=== PATIENT | male | born 2000 | race Caucasian/White ===

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

== ENCOUNTER 2021-04-12 08:24 | Emergency (ER) | payer OTHER ==
[~2021-04-12] VITALS: Ht 180.3 cm; Wt 86.2 kg
[~2021-04-12 08:24] MED LIST changes: +ACETAMINOPHEN-1 EAC1 PO; +ZYRTEC10 M5 PO
[2021-04-12 09:17] LABS: ABSOLUTE EOSINOPHILS 0.3 thou/uL (0.0-0.7); ABSOLUTE NEUTROPHILS 5.7 thou/uL (1.6-8.1); BASOPHILS 0.5 %; EOSINOPHILS 2.9 %; HEMATOCRIT 43.9 % (42.0-52.0); LYMPHOCYTES 29.6 %; MCH 31.4 pg (26.0-34.0); MCHC 34.1 g/dL (28.0-37.0); MCV 91.9 fL (80.0-100.0); MPV 7.6 fl. (7.2-11.1); NUCLEATED RBCS 0 /100WBC; PLATELET COUNT* 278 thou/uL (150-400); RBC 4.78 mil/uL (4.50-6.00); RDW-CV 12.5 % (10.5-14.5)
[2021-04-12 09:36] LABS: CALCIUM 9.2 mg/dL (8.5-10.1); CREATININE 1.1 mg/dL (0.6-1.3)
[2021-04-12 09:40] LABS: ALBUMIN 4.1 g/dL (3.4-5.0); MAGNESIUM 2.1 mg/dL (1.8-2.4); TOTAL BILIRUBIN 0.2 mg/dL (<0.1-1.0); TOTAL PROTEIN 7.4 g/dL (6.4-8.2)
[2021-04-12] MEDS ORDERED: CARAFATE1 GM PO (09:55)
[2021-04-12 10:04] VITALS: BP 127/78
--- NOTE | 2021-04-14 13:47 | EKG ---
[place] [address] ELECTROCARDIOGRAM REPORT Name: LISA ROSE Room: [facility]#: [id number] Admission: 04/12/21 Attend Phys: Discharge: 04/12/21 Date of : [birth year] Date of Service: 04/12/21827 Report #: [id number] THIS REPORT FOR: //name// [facility] ED Test Date: 2021-04-12 Test Time: 08:28:43 Pat Name: LISA ROSE Department: Room: Gender: Child'S Nurse: [facility] : 2000 Requested By: Naldo Robles Order Number: [id number] MD: Zeyad Boone Measurements Intervals [place] Rate: 98 P: 14 IA: 134 QRS: 17 QRSD: 105 T: 29 QT: 338 QTc: 432 Interpretive Statements Sinus rhythm Baseline wander in lead(s) I,II,aVR,aVL,V3 No previous ECG available for comparison Electronically Signed On 04-14-2021 13:47:02 CDT by Zeyad Boone [email or web address] <ELECTRONICALLY SIGNED> By: Zeyad Boone MD, [facility] 04/14/21 1347 0828 0828 Zeyad Boone MD, [facility] /EPI
== END 2021-04-12 10:06 | disposition home or self-care (01) ==
LOC: M.ERS 08:24
PROVIDERS: Emergency Medicine Emergency Medical Services
DX: R10.13 Epigastric pain (principal); Z88.8 Allergy status to other drugs, medicaments and biological substances